=== PATIENT | female | born 1940 | race Caucasian/White ===

== ENCOUNTER → 2016-12-03 | Outpatient (CLI) | payer MEDICARE ==
[~2016-12-03] MED LIST: CANASA RC; CARV12.53 PO; IOHEXOL 350 MG/ML 100 ML (OMNIPAQUE 350) VIAL IV ONE; MERC50TA PO; METO-272 PO; MSL400TEC PO; NS 100 ML (IVPB) BAG IV ONE; OXYC-12 PO; PRAV80TA2 PO; RMP5C; SIMV20TA3 PO; VALS160T28 PO; [UNRECOGNIZED DRUG - REMARK] PO
[2016-12-03 08:32] LABS: BLOOD UREA NITROGEN 13 MG/DL (7-18); BUN/CREATININE RATIO 17; CREATININE SERUM 0.75 MG/DL (0.60-1.30); GFR ESTIMATED > 60
--- NOTE | 2016-12-03 14:20 | Diagnostic Imaging Report ---
EXAMINATION: CT angiogram of the neck performed with intravenous contrast. INDICATION: I65.23. Carotid stenosis. 75 mL of Omnipaque 350 is administered intravenously. Coronal MIP reconstruction is performed. FINDINGS: The aortic arch is patent. The brachiocephalic artery is patent. The right common carotid artery is patent. The right internal and external carotid arteries are patent. At the mid segments of the cervical portion of the right internal carotid artery, there is mild irregularity of the vessel and estimated underlying stenosis of 20-30%. The pattern, lack of prominent plaque, and the location of the abnormality with sparing of the carotid bifurcation is in favor of fibromuscular dysplasia. The left common carotid artery is patent. The carotid bifurcation demonstrates no plaque. The internal and external carotid arteries are patent. The mid segment of the internal carotid artery demonstrates minimal stenosis with irregularity of the lining of the vessel. This may relate to fibromuscular dysplasia. No high-grade stenosis. The vertebral arteries demonstrate normal origin from the patent subclavian arteries and patent course on both sides with codominance suggested. The soft tissues in the neck demonstrate symmetric submandibular and parotid glands. Tiny nonspecific nodule in the left thyroid lobe measuring 6 mm is seen. There is no lymphadenopathy in the cervical chain bilaterally. The lung apices are clear. Degenerative changes in the osseous structures seen. IMPRESSION: There is mild irregularity of the lining of the internal carotid artery affecting mostly the mid segment of the cervical portion of the ICA with no high-grade focal stenosis. The pattern, location, and lack of significant visible plaque are all suggestive of underlying fibromuscular dysplasia (FMD). Dictated on workstation # [id number]
== END ==
LOC: RAD 07:39
PROVIDERS: ATTEND Internal Medicine Cardiovascular Disease
DX: I65.23 Occlusion and stenosis of bilateral carotid arteries (principal)
CPT/HCPCS: 36415; 70498; 82565; 84520

== ENCOUNTER 2017-05-25 13:08 | Emergency (ER) | payer MEDICARE ==
[~2017-05-25] VITALS: Ht 157.5 cm; Wt 60.8 kg
[~2017-05-25 13:08] MED LIST changes: -IOHEXOL 350 MG/ML 100 ML (OMNIPAQUE 350) VIAL IV ONE; -NS 100 ML (IVPB) BAG IV ONE
[2017-05-25 13:47] LABS: BASOPHILS % (AUTO) 0 % (0-10); EOSINOPHILS # (AUTO) 0.1 10^3/uL (0.0-0.3); EOSINOPHILS % (AUTO) 1 % (0-10); HEMATOCRIT 37 % (35-52); LYMPHOCYTES # (AUTO) 0.8 X 10^3 (1.0-4.0); LYMPHOCYTES % (AUTO) 14 % (12-44); MEAN CORPUSCULAR HEMOGLOBIN 35 PG (25-34); MEAN CORPUSCULAR HGB CONC 35 G/DL (32-36); MEAN CORPUSCULAR VOLUME 99 FL (80-99); MEAN PLATELET VOLUME 9.4 FL (7.4-10.4); MONOCYTES # (AUTO) 0.8 X 10^3 (0.0-1.0); MONOCYTES % (AUTO) 15 % (0-12); NEUTROPHILS # (AUTO) 3.9 X 10^3 (1.8-7.8); NEUTROPHILS % (AUTO) 70 % (42-75); PLATELET COUNT 218 10^3/uL (130-400); RED BLOOD COUNT 3.76 10^6/uL (4.35-5.85); RED CELL DISTRIBUTION WIDTH 14.3 % (10.0-14.5); WHITE BLOOD COUNT 5.5 10^3/uL (4.3-11.0)
[2017-05-25 13:59] VITALS: BP_SYST 164; BP_SYST 170; BP_SYST 173; BP_DIAS 73; BP_DIAS 80; BP_DIAS 82
[2017-05-25 15:01] LABS: ALANINE AMINOTRANSFERASE 46 U/L (0-55); ALBUMIN 3.9 GM/DL (3.2-4.5); ALKALINE PHOSPHATASE 64 U/L (40-136); BILIRUBIN,TOTAL 1.5 MG/DL (0.1-1.0); BUN/CREATININE RATIO 20; CARBON DIOXIDE 26 MMOL/L (21-32); CHLORIDE 96 MMOL/L (98-107); CREATININE SERUM 0.65 MG/DL (0.60-1.30); GFR ESTIMATED > 60; GLUCOSE 105 MG/DL (70-105); MAGNESIUM 2.2 MG/DL (1.8-2.4); POTASSIUM 3.5 MMOL/L (3.6-5.0); SODIUM 129 MMOL/L (135-145); TOTAL PROTEIN 6.8 GM/DL (6.4-8.2)
[2017-05-25] MEDS ORDERED: NS IV 1000 ML 1,000 ML IV SCH (15:10)
--- NOTE | 2017-05-25 15:53 | ED Syncope ---
General Chief Complaint: Dizziness/Syncope Stated Complaint: SYNCOPE/FALL Nursing Triage Note: pt was brought to ed via ems. pt had a syncopal episode while at [facility]. Source of Information: Patient, Old Records History of Present Illness Date Seen by Provider: May 25, 2017 Time Seen by Provider: 13:12 Initial Comments This 76-year-old female patient with prior history of syncopal episodes presents to the emergency room via EMS after having 3 episodes of syncope today while visiting at [facility]. EMS notes she has had a heart rate in the 50s and blood pressures have been stable with systolic pressures in the 160s and 170s. Patient has had extensive workup in the past including a 48 hour monitor which showed only PVCs in 2014, cardiac catheter in 2016 showing mild CAD, echocardiogram in 2016 showing diastolic dysfunction as well as mild LVH, aortic valve sclerosis, and mild valvular disease. Ejection fraction was 60 percent. Patient reports definitive cause of her syncopal episodes is uncertain even after extensive workup. Patient takes multiple blood pressure medications that has hypertension that has historically been difficult to manage. She notes she also is an anxious person and takes anxiolytics. She reports a prior history of a cardiac arrest at [place]. Patient states she feels fairly well now except for feeling tired and having a headache. Patient reports she recently was seen in Dr. Alejandre's office and had carotid imaging performed which was reportedly negative. Patient notes she has recently been treated for vertigo. Allergies and Home Medications Allergies Coded Allergies: Atorvastatin (Verified Allergy, Unknown, 11/29/07) Codeine (Verified Allergy, Unknown, 11/29/07) Niacin (Verified Allergy, Unknown, 11/29/07) Sulfa (Sulfonamides) (Verified Allergy, Unknown, 11/29/07) Home Medications Carvedilol 12.5 Mg Tablet, 12.5 MG PO BID, (Reported) Mercaptopurine 50 Mg Tablet, 100 MG PO DAILY, (Reported) Simvastatin 20 Mg Tablet, 20 MG PO HS, (Reported) Valsartan 160 Mg Tablet, 160 MG PO DAILY, (Reported) Patient Home Medication List Home Medication List Reviewed: Yes Constitutional: no symptoms reported EENTM: no symptoms reported Respiratory: no symptoms reported Cardiovascular: see HPI Gastrointestinal: no symptoms reported Genitourinary: no symptoms reported Musculoskeletal: no symptoms reported Skin: no symptoms reported Psychiatric/Neurological: No Symptoms Reported Past [id number]-[id number] Hx Patient Social History Alcohol Use: Denies Use Recreational Drug Use: No Smoking Status: Never a Smoker 2nd Hand Smoke Exposure: No Recent Foreign Travel: No Contact w/Someone Who Travel: No Recent Infectious Disease Expo: No Recent Hopitalizations: No Physical Abuse: No Sexual Abuse: No Immunizations Up To Date Date of Pneumonia Vaccine: Oct 28, 2009 Seasonal Allergies Seasonal Allergies: No Surgeries History of Surgeries: Yes Surgeries: Abdominal (colon resection) Respiratory History of Respiratory Disorde: Yes Respiratory Disorders: Asthma Cardiovascular History of Cardiac Disorders: Yes (MITRAL VALVE PROLAPSE HX OF) Cardiac Disorders: Hypertension, Syncope, Valvular Heart Disease Neurological History of Neurological Disord: Yes Neurological Disorders: Vertigo Reproductive System : No Hx Reproductive Disorders: No Sexually Transmitted Disease: No Genitourinary History of Genitourinary Disor: No Gastrointestinal History of Gastrointestinal Di: Yes (ULCERATIVE COLITIS) Gastrointestinal Disorders: Colitis (ulcerative colitis), Gastroesophageal Reflux Musculoskeletal History of Musculoskeletal Dis: Yes (fingers) Endocrine History of Endocrine Disorders: No HEENT History of HEENT Disorders: No Cancer History of Cancer: No Cancer: Skin Psychosocial History of Psychiatric Problem: Yes Behavioral Health Disorders: Anxiety Suicide Risk Score: 0 Integumentary History of Skin or Integumenta: No Blood Transfusions History of Blood Disorders: Yes Physical Exam Vital Signs Vital Signs - First Documented 05/25/17 05/25/17 13:08 16:36 Temp 98.4 Pulse 63 Resp 18 B/P (MAP) 179/82 (114) Pulse Ox 100 O2 Delivery Room Air Capillary Refill : Less Than 3 Seconds General Appearance: No Apparent Distress, WD/WN HEENT: PERRL/EOMI, Normal ENT Inspection, Pharynx Normal Neck: Normal Inspection Cardiovascular: Regular Rate, Rhythm, No Edema, No Murmur Respiratory: Lungs Clear, Normal Breath Sounds, No Accessory Muscle Use, No Respiratory Distress Gastrointestinal: Normal Bowel Sounds, Non Tender, Soft Extremities: Normal Capillary Refill, Normal Inspection, No Pedal Edema Neurologic/Psychiatric: Alert, Oriented x3, No Motor/Sensory Deficits, Normal Mood/Affect, atmospheric scientist II-XII Norm as Tested Cranial Nerves: Normal Hearing, Normal Speech, PERRL Motor/Sensory: No Motor Deficit, No Sensory Deficit Skin: Normal Color, Warm/Dry Progress/Results/Core Measures Results/Orders Lab Results Laboratory Tests Test 05/25/17 13:40 05/25/17 14:37 Range/Units White Blood Count 5.5 4.3-11.0 10^3/uL Red Blood Count 3.76 L 4.35-5.85 10^6/uL Hemoglobin 13.0 11.5-16.0 G/DL Hematocrit 37 35-52 % Mean Corpuscular Volume 99 80-99 FL Mean Corpuscular Hemoglobin 35 H 25-34 PG Mean Corpuscular Hemoglobin Concent 35 32-36 G/DL Red Cell Distribution Width 14.3 10.0-14.5 % Platelet Count 218 130-400 10^3/uL Mean Platelet Volume 9.4 7.4-10.4 FL Neutrophils (%) (Auto) 70 42-75 % Lymphocytes (%) (Auto) 14 12-44 % Monocytes (%) (Auto) 15 H 0-12 % Eosinophils (%) (Auto) 1 0-10 % Basophils (%) (Auto) 0 0-10 % Neutrophils # (Auto) 3.9 1.8-7.8 X 10^3 Lymphocytes # (Auto) 0.8 L 1.0-4.0 X 10^3 Monocytes # (Auto) 0.8 0.0-1.0 X 10^3 Eosinophils # (Auto) 0.1 0.0-0.3 10^3/uL Basophils # (Auto) 0.0 0.0-0.1 10^3/uL Sodium Level 129 L 135-145 MMOL/L Potassium Level 3.5 L 3.6-5.0 MMOL/L Chloride Level 96 L 98-107 MMOL/L Carbon Dioxide Level 26 21-32 MMOL/L Anion Gap 7 5-14 MMOL/L Blood Urea Nitrogen 13 7-18 MG/DL Creatinine 0.65 0.60-1.30 MG/DL Estimat Glomerular Filtration Rate > 60 BUN/Creatinine Ratio 20 Glucose Level 105 70-105 MG/DL Calcium Level 9.0 8.5-10.1 MG/DL Magnesium Level 2.2 1.8-2.4 MG/DL Total Bilirubin 1.5 H 0.1-1.0 MG/DL Aspartate Amino Transf (AST/SGOT) 26 5-34 U/L Alanine Aminotransferase (ALT/SGPT) 46 0-55 U/L Alkaline Phosphatase 64 40-136 U/L Total Protein 6.8 6.4-8.2 GM/DL Albumin 3.9 3.2-4.5 GM/DL My Orders Orders - BRUCE ROOT MD Cbc With Automated Diff (05/25/17 13:31) Comprehensive Metabolic Panel (05/25/17 13:31) Magnesium (05/25/17 13:31) Saline Lock/Iv-Start (05/25/17 13:31) Ekg Tracing (05/25/17 13:31) Monitor-Rhythm Ecg Trace Only (05/25/17 13:31) Orthostatic Vital Signs (Adult (05/25/17 13:31) Ns Iv 1000 Ml (Sodium Chloride 0.9%) (05/25/17 15:10) Vital Signs/I&O Vital Sign - Last 12Hours 05/25/17 05/25/17 05/25/17 13:08 13:59 16:36 Temp 98.4 98.4 Pulse 63 60 57 60 56 Resp 18 16 B/P (MAP) 179/82 (114) 170/82 (111) 182/76 173/80 (111) 164/73 (103) Pulse Ox 100 100 O2 Delivery Room Air Blood Pressure Mean: 103 Progress Note : Progress Note Patient was mildly hyponatremic and received a liter of IV normal saline. I suspect the combination of beta blockers and diuretics are contributing to her inability to compensate hemodynamic changes. This may be predisposing her to more syncopal episodes. Orthostatic blood pressures did not reveal any significant changes while in the ER. Patient was hypertensive. She was advised to follow-up with her cardiology team as soon as possible. An appointment was made to see Nani and Dr. Alejandre's clinic at 10:40 tomorrow. ECG Initial ECG Impression Date: May 25, 2017 Initial ECG Impression Time: 13:45 Initial ECG Rate: 58 Initial ECG Rhythm: Normal Sinus Initial ECG Intervals: Normal Initial ECG Impression: Normal Comment Normal sinus rhythm with no ST elevation or depression. No abnormal intervals or axis deviation. Departure Impression Impression: Primary Impression: Syncope Qualified Codes: R55 - Syncope and collapse Additional Impressions: Hyponatremia Hypertension Qualified Codes: I10 - Essential (primary) hypertension Disposition: 01 HOME, SELF-CARE Condition: Improved Departure-Patient Inst. Decision time for Depature: 15:40 Referrals: DEANNA WOODWARD MD (PCP/Family) Primary Care Physician Patient Instructions: Hyponatremia, Syncope (Fainting) (DC) Add. Discharge Instructions: Please follow-up with Nani at Dr. Alejandre's office tomorrow at 10:40 to have your blood pressure checked and have a medication review. The combination of your diuretics and carvedilol may be making you more prone to syncopal episodes. Return to the ER if symptoms are worsening. Always rise carefully from a sitting or lying position and take your time. Drink plenty of clear liquids. Continue your current medications until discussion with Nani or Dr. Alejandre. Avoid activities that could cause harm if you have another syncopal episode such as driving, use of ladders, bike riding, operating machinery, etc. until you are cleared in follow-up. All discharge instructions reviewed with patient and/or family. Voiced understanding. Copy Copies To 1: LINDA ALEJANDRE MD Copies To 2: DEANNA WOODWARD MD, JOSHUA T MD May 25, 2017 15:53
[2017-05-25 16:36] VITALS: BP 182/76
== END 2017-05-25 16:36 | disposition home or self-care (01) ==
LOC: EDUNIT# 13:08 → ER 13:09
DX: R55 Syncope and collapse (principal); E87.1 Hypo-osmolality and hyponatremia; I11.9 Hypertensive heart disease without heart failure; I51.9 Heart disease, unspecified; I25.10 Atherosclerotic heart disease of native coronary artery without angina pectoris; F41.9 Anxiety disorder, unspecified; K21.9 Gastro-esophageal reflux disease without esophagitis; J45.909 Unspecified asthma, uncomplicated; Z87.19 Personal history of other diseases of the digestive system; Z90.49 Acquired absence of other specified parts of digestive tract; Z88.1 Allergy status to other antibiotic agents; Z88.2 Allergy status to sulfonamides; Z88.5 Allergy status to narcotic agent
CPT/HCPCS: 36415; 80053; 83735; 85025; 93005; 93041; 96360

== ENCOUNTER → 2017-05-30 | Outpatient (CLI) | payer MEDICARE ==
[~2017-05-30] VITALS: Ht 157.5 cm; Wt 60.8 kg
[2017-05-30] VITALS (24 sets, daily range): BP systolic 63–152; BP diastolic 20–77
[~2017-05-30] MED LIST changes: +ATROPINE INJECTION 1 MG/10 ML SYR (ABBOTT) ONE; +NS IV 1000 ML 1,000 ML IV ONE; +NS IV 1000 ML 1,000 ML ONE
--- NOTE | 2017-05-30 11:26 | Cardiology Tilt Table Test ---
Cardiology-Tilt Table Test Tilt Table Test Date 05/30/17 Baseline Vitals Vital Signs Date Time Temp Pulse Resp B/P (MAP) Pulse Ox O2 Delivery O2 Flow Rate FiO2 05/30/17 09:33 97.6 55 20 150/65 (93) 99 05/30/17 09:44 Room Air Vital Signs VS - Last 72 Hours, by Label 05/30/17 05/30/17 05/30/17 05/30/17 09:33 09:41 09:42 09:44 Temp 97.6 Pulse 55 57 56 54 Resp 20 B/P (MAP) 150/65 (93) 149/65 (93) 150/73 (98) 144/63 (90) Pulse Ox 99 100 98 O2 Delivery Room Air 05/30/17 05/30/17 05/30/17 05/30/17 09:46 09:48 09:50 09:51 Pulse 56 55 54 57 B/P (MAP) 140/51 (80) 133/56 (81) 135/63 (87) 126/63 (84) Pulse Ox 98 100 98 O2 Delivery Room Air 05/30/17 05/30/17 05/30/17 05/30/17 09:53 09:54 09:55 09:57 Pulse 53 55 55 52 B/P (MAP) 147/75 (99) 146/65 (92) 132/71 (91) 128/72 (90) Pulse Ox 97 99 99 98 05/30/17 05/30/17 05/30/17 05/30/17 09:58 10:00 10:01 10:03 Pulse 56 59 57 57 B/P (MAP) 109/59 (76) 102/55 (71) 90/43 (59) 79/44 (56) Pulse Ox 95 05/30/17 05/30/17 05/30/17 05/30/17 10:05 10:06 10:08 10:11 Pulse 47 55 50 50 B/P (MAP) 63/20 (34) 106/65 (79) 142/72 (95) 150/77 (101) Pulse Ox 98 99 05/30/17 05/30/17 05/30/17 05/30/17 10:14 10:20 10:26 10:30 Pulse 55 61 55 51 B/P (MAP) 150/67 (94) 124/72 (89) 152/64 (93) Pulse Ox 98 05/30/17 10:46 Pulse 56 B/P (MAP) 142/59 (86) Patient was tilted to 75 degrees for [10] minutes, then returned to supine position, given [2] sublingual nitroglycerin tablets, then tilted again to 75 degrees for [15] minutes. During test, patient was: had a syncopal event at minute (7, BP 63/20, HR 50, Telemetry revealed sinus bradycardia) In Conclusion;: Vasovagal Syncope with (Vasodepressor Syncope) Patient was instructed to discontinue diuretic. Continue to wear compression stockings. F/u in 2-4 weeks. This is Nani Mullins PA-C, as a scribe for Dr. Alejandre. NANI ROMERO May 30, 2017 11:26
[2017-05-30 11:42] LABS: ALANINE AMINOTRANSFERASE 36 U/L (0-55); ALBUMIN 3.8 GM/DL (3.2-4.5); ALKALINE PHOSPHATASE 64 U/L (40-136); BILIRUBIN,TOTAL 1.5 MG/DL (0.1-1.0); BUN/CREATININE RATIO 15; CALCIUM 8.7 MG/DL (8.5-10.1); CARBON DIOXIDE 27 MMOL/L (21-32); CHLORIDE 99 MMOL/L (98-107); CHOLESTEROL 173 MG/DL (< 200); CREATININE SERUM 0.67 MG/DL (0.60-1.30); GFR ESTIMATED > 60; GLUCOSE 122 MG/DL (70-105); HDL CHOLESTEROL 72 MG/DL (40-60); POTASSIUM 3.6 MMOL/L (3.6-5.0); SODIUM 132 MMOL/L (135-145); TOTAL PROTEIN 6.3 GM/DL (6.4-8.2); TRIGLYCERIDES 53 MG/DL (<150); VLDL CHOLESTEROL 11 MG/DL (5-40)
== END ==
LOC: CARD 08:47
PROVIDERS: ATTEND Physician Assistant
DX: I10 Essential (primary) hypertension (principal); R07.89 Other chest pain; R55 Syncope and collapse; E78.5 Hyperlipidemia, unspecified
CPT/HCPCS: 36415; 80053; 80061; 93660

== ENCOUNTER → 2017-07-01 | Outpatient (CLI) | payer MEDICARE ==
[~2017-07-01] MED LIST changes: -ATROPINE INJECTION 1 MG/10 ML SYR (ABBOTT) ONE; -NS IV 1000 ML 1,000 ML IV ONE; -NS IV 1000 ML 1,000 ML ONE
--- NOTE | 2017-07-01 13:48 | Diagnostic Imaging Report ---
INDICATION: Routine screening. TECHNIQUE: Bilateral 3d digital tomographic views were obtained with [employer] and reviewed on a [employer] workstation. In addition, CAD - computer aided detection was utilized. COMPARISON is made with prior study from 07/04/2014 and 07/03/2013 FINDINGS: There are scattered fibroglandular densities bilaterally. Biopsy clip upper outer right breast is again noted. No discrete mass or malignant appearing microcalcifications are seen. The axillae are unremarkable. IMPRESSION: ACR BI-RADS Category 2: Benign findings. Result letter will be mailed to the patient. Note: At least 10% of breast cancer is not imaged by mammography. Dictated by: Dictated on workstation # [id number]
== END ==
LOC: RAD 09:24
PROVIDERS: ATTEND Family Medicine
DX: Z12.31 Encounter for screening mammogram for malignant neoplasm of breast (principal)
CPT/HCPCS: 77067

== ENCOUNTER → 2017-10-10 | Outpatient (CLI) | payer MEDICARE ==
[~2017-10-10] MED LIST changes: -VALS160T28 PO; +VALS160T29 PO
--- NOTE | 2017-10-10 09:01 | Diagnostic Imaging Report ---
PROCEDURE: US Thyroid. TECHNIQUE: Multiple real-time grayscale images were obtained of the thyroid in various projections. INDICATION: Dysphagia and dysphonia. No prior studies are available for comparison. FINDINGS: The right lobe of the thyroid measures 4.2 x 1.8 x 1.7 cm and the left lobe measures 3.9 x 1.4 x 1.2 cm. Several thyroid nodules are present. There is a partially calcified subcentimeter nodule lower pole left lobe approximately 7 mm x 8 mm in size. There is an ovoid hypoechoic nodule upper pole left lobe measuring 1.2 x 0.5 x 0.6 cm. Subcentimeter nodule mid right lobe measures approximately 6 mm. No dominant thyroid mass is detected. IMPRESSION: Bilateral thyroid nodules, as described. Followup ultrasound in 6 months could be performed to confirm stability. Dictated by: Dictated on workstation # [id number]
== END ==
LOC: RAD 07:49
PROVIDERS: ATTEND Nurse Practitioner Family
DX: E04.2 Nontoxic multinodular goiter (principal); R49.0 Dysphonia
CPT/HCPCS: 76536

== ENCOUNTER → 2017-11-11 | Outpatient (CLI) | payer MEDICARE ==
[2017-11-11 07:38] LABS: BUN/CREATININE RATIO 19; CREATININE SERUM 0.74 MG/DL (0.60-1.30); GFR ESTIMATED > 60
== END ==
LOC: RAD 06:56
PROVIDERS: ATTEND Otolaryngology Otolaryngology/Facial Plastic Surgery
DX: M53.82 Other specified dorsopathies, cervical region (principal); Z53.8 Procedure and treatment not carried out for other reasons
CPT/HCPCS: 36415; 82565; 84520

== ENCOUNTER → 2017-11-24 | Outpatient (CLI) | payer MEDICARE ==
[~2017-11-24] MED LIST changes: +IOHEXOL 350 MG/ML 100 ML (OMNIPAQUE 350) VIAL IV ONE; +NS 250 ML (IVPB) BAG IV ONE
--- NOTE | 2017-11-24 09:00 | Diagnostic Imaging Report ---
PROCEDURE: CT neck soft tissue with contrast. TECHNIQUE: Multiple contiguous axial images were obtained through the neck after the administration of contrast. INDICATION: Fullness in the throat, particularly on the right side. The visualized intracranial structures are unremarkable. The posterior nasopharynx and oropharynx are unremarkable. There is some moderate amount of streak artifact from patient dental hardware. Pharyngeal fat planes are preserved. The epiglottis and larynx are unremarkable. Small nodules in both lobes of the thyroid are seen, correlating with the recent thyroid ultrasound. The submandibular and parotid glands appear to be symmetric bilaterally. Jugulodigastric region as well as posterior cervical regions are unremarkable for pathologically enlarged nodes. Lung apices are unremarkable. IMPRESSION: Unremarkable CT of the soft tissues of the neck. No neck mass or lymphadenopathy is identified. Dictated by: Dictated on workstation # [id number]
== END ==
LOC: RAD 08:02
PROVIDERS: ATTEND Otolaryngology Otolaryngology/Facial Plastic Surgery
DX: R22.1 Localized swelling, mass and lump, neck (principal)
CPT/HCPCS: 70491

== ENCOUNTER → 2020-06-26 | Outpatient (CLI) | payer MEDICARE ==
[~2020-06-26] MED LIST changes: -IOHEXOL 350 MG/ML 100 ML (OMNIPAQUE 350) VIAL IV ONE; -NS 250 ML (IVPB) BAG IV ONE; +SIMV20TA26 PO; -SIMV20TA3 PO
== END ==
LOC: CARD 08:47
PROVIDERS: ATTEND Internal Medicine Cardiovascular Disease
DX: I08.0 Rheumatic disorders of both mitral and aortic valves (principal); I11.9 Hypertensive heart disease without heart failure
CPT/HCPCS: 93306

== ENCOUNTER → 2020-07-07 | Outpatient (CLI) | payer MEDICARE ==
[~2020-07-07] VITALS: Ht 157 cm; Wt 63.0 kg
[~2020-07-07] MED LIST changes: +CATHETER FLUSH 10 ML SYR IV PRN
[2020-07-07 10:56] VITALS: BP 145/82
--- NOTE | 2020-07-07 10:56 | Cardiology Stress Test Report ---
Stress Test Report Date of Procedure/Referring: Date of Procedure: July 07, 2020 PCP Linda Alejandre MD Admitting Physician Radha Adam MD Indications: HTN Baseline Heart Rate: 63 Baseline Blood Pressure: Blood Pressure Systolic: 145 Blood Pressure Diastolic: 82 Baseline EKG: Baseline EKG: NSR Summary: After explaining the procedure and details to the patient, she signed the consent and was brought to the stress nuclear laboratory. Patient exercised on standard Ricky protocol, EKG, heart rate and blood pressure were monitored continuously, resting and stress doses of radio tracer were injected, imaging was acquired and reviewed in the short axis, horizontal long axis and vertical long axis views Patient was able to exercise for a total of 4:42 minutes on Ricky protocol, METs 6 Maximum heart rate 110 Maximum blood pressure 212/76 Stress EKG, Minimal nondiagnostic changes Recovery EKG, Return to baseline TID: 1.07 SSS: 8 SDS: 7 EF: 69 Conclusion: 1. Fair exercise tolerance for a total of 4 minutes and 42 seconds on standard Ricky protocol achieving only 78% of maximal expected heart rate, total of 6 METS 2. Severe hypertensive response to exercise with peak blood pressure 212/76 3. [address] depression in lead II, III and aVF return to baseline during recovery 4. Reversible ischemia involving the whole anterior wall and anterolateral wall with some breast attenuation 5. Normal left ventricular size, EF 69% LINDA ALEJANDRE MD July 07, 2020 10:56
== END ==
LOC: CARD 08:30
PROVIDERS: ATTEND Internal Medicine Cardiovascular Disease
DX: I10 Essential (primary) hypertension (principal)
CPT/HCPCS: 78452; 93017; A9502

== ENCOUNTER 2020-07-11 09:00 | Day surgery (SDC) | payer MEDICARE ==
[2020-07-11] VITALS (10 sets, daily range): BP systolic 138–189; BP diastolic 62–108
[~2020-07-11] VITALS: Ht 157 cm; Wt 64.0 kg
--- NOTE | 2020-07-11 07:41 | Diagnostic Imaging Report ---
EXAMINATION: Chest radiograph, portable AP view. DATE: 07/11/2020 7:25 AM INDICATION: 80-year-old female, chest pain. COMPARISON: October 29, 2015 FINDINGS: Heart size and mediastinal contours are unchanged. There is no identified pneumothorax. There is no large pleural effusion. There is no identified interval focal airspace consolidation. There is widening of the right acromioclavicular joint which is unchanged and likely relates to prior acromioclavicular joint separation injury. IMPRESSION: 1. No identified acute cardiopulmonary abnormality. Dictated by: Dictated on workstation # [id number]
[2020-07-11 07:43] LABS: HEMOGLOBIN 13.1 g/dL (11.5-16.0); MEAN PLATELET VOLUME 9.7 fL (9.0-12.2)
[2020-07-11 08:04] LABS: ALANINE AMINOTRANSFERASE 61 U/L (0-55); ALKALINE PHOSPHATASE 91 U/L (40-136); BILIRUBIN,TOTAL 1.2 MG/DL (0.1-1.0); BUN/CREATININE RATIO 18; CALCIUM 8.9 MG/DL (8.5-10.1); CARBON DIOXIDE 29 MMOL/L (21-32); CHLORIDE 103 MMOL/L (98-107); CHOLESTEROL 142 MG/DL (< 200); CREATININE SERUM 0.72 MG/DL (0.60-1.30); GFR ESTIMATED > 60; GLUCOSE 101 MG/DL (70-105); HDL CHOLESTEROL 47 MG/DL (40-60); POTASSIUM 3.7 MMOL/L (3.6-5.0); SODIUM 141 MMOL/L (135-145); TOTAL PROTEIN 7.1 GM/DL (6.4-8.2); TRIGLYCERIDES 108 MG/DL (<150); VLDL CHOLESTEROL 22 MG/DL (5-40)
--- NOTE | 2020-07-11 08:44 | Conscious Sedation/ASA ---
Conscious Sedation Pre-Proced Time 08:44 ASA Score 3 For ASA 3 and 4: Consider anesthesia and medical clearance. Also, for patients with a history of failed moderate sedation consider anesthesia. Airway Lungs Heart ASA score ASA 1: a normal healthy patient ASA 2: a patient with a mild systemic disease (mid diabetes, controlled hypertension, obesity x ASA 3: a patient with a severe systemic disease that limits activity (angina, COPD, prior Myocardial infarction) ASA 4: a patient with an incapacitating disease that is a constant threat to life (CHF, renal failure) ASA 5: a moribund patient not expected to survive 24 hrs. (ruptured aneurysm) ASA 6: a declared brain- patient whose organs are being harvested. For emergent operations, add the letter E after the classification Mallampati Classification Grade 3 Sedation Plan Analgesia, Amnesia, Plan communicated to team members, Discussed options with patient/fam, Discussed risks with patient/fam The patient is an appropriate candidate to undergo the planned procedure, sedation, and anesthesia. The patient immediately re-assessed prior to indication. LINDA NOGUEIRA MD July 11, 2020 08:44
[~2020-07-11 09:00] MED LIST changes: +ASCO500T7 PO; +ATOR10TA66 PO; -CATHETER FLUSH 10 ML SYR IV PRN; +CHOL-34 PO; +CYAN500T44 PO; +HEParin (CATH LAB) 2,000 ML IV ONE; +HEParin 1000 UNIT/ML (10ML VIAL) FOR BOLUS ONE; +LACT1CAP62 PO; +LIDOCAINE 1% INJ 20 ML 20 ML VIAL ONE; +MIDAZOLAM 5 MG/5 ML (VERSED) VIAL ONE; +NITRO DRIP 25000 MCG/D5W 250 ML IV ONE; +NS IV 1000 ML 1,000 ML IV SCH; +NS IV 1000 ML 1,000 ML ONE; +OMEP20TA7 PO; +VERAPAMIL 5 MG/2 ML (CALAN) VIAL IV ONE; +fentaNYL INJ 100 MCG/2 ML AMP ONE
--- NOTE | 2020-07-11 09:07 | Discharge Inst-Post CATH ---
Discharge Inst-CATH/EP Problems Reviewed?: Yes Post Cardiac Cath/EP D/C Inst Follow Up/Plan Appointment with Dr. Alejandre in 2 to 4 weeks <b>CARDIAC CATH/EP PROCEDURE DISCHARGE INSTRUCTIONS</b> ACTIVITY * Go Home directly and rest. * Limit activity of the leg (or wrist if it was used) for 7 days including aerobics, swimming, jogging, bicycling, etc. * Restrict stair-climbing for 7 days if possible, if not, climb up with your non-cath leg, then bring together on the same step. * Avoid lifting, pushing, pulling or excessive movement of the affected extremity for 7 days. * Customary sexual activity may be resumed after 2 days-use caution not to use a position that strains or causes pain to the affected extremity. * No driving for 24 hours. * NO SMOKING. * Avoid straining for bowel movements for 7 days. * Gentle walking on level ground is allowed. * Returning to work will depend on the type of procedure and the results. Your doctor will discuss this with you. CALL YOUR DOCTOR FOR ANY OF THE FOLLOWING: *If bleeding from the puncture site occurs- Apply gentle pressure to site with clean cloth and call your doctor or EMS. * If a knot or lump forms under the skin, increases in size, or causes pain. * If bruising appears to be worsening or moving further down your leg instead of disappearing. * Temperature above 101 F. CARE OF YOUR GROIN INCISION; * Bruising or purple discoloration of the skin near the puncture site is common. * You may shower only, no bathtub bathing for 5 days. Be careful to avoid slipping as your leg may feel stiff. * If a closure device was used on your femoral artery, please see the attached guide regarding care of the device and your leg. * Leave dressing on FOR 24 hours. CARE OF YOUR WRIST INCISION; * Bruising or purple discoloration of the skin near the puncture site is common. * You may shower. * DO NOT submerge wrist. * Leave dressing on FOR 24 hours. LINDA ALEJANDRE MD July 11, 2020 9:07 am
--- NOTE | 2020-07-11 09:11 | Cardiac Cath Report ---
Cardiac Cath Report Physician (s)/Vehicle Modification Technician (s) Physician LINDA NOGUEIRA MD Pre-Procedure Diagnosis Pre-Procedure Diagnosis: Chest pain, coronary artery disease Post-Procedure Note Procedure Start Date: July 11, 2020 Name of Procedure: Coronary angiogram Aortic arch angiogram Findings/Procedure Note PROCEDURE NOTE: 80 years old lady with history of hypertension, hyperlipidemia, mild coronary artery disease, has been having recurrent chest pain, had an abnormal stress test, scheduled for cardiac catheterization possible PTCA. After explaining the procedure to the patient, all pros and cons were explained, all questions were answered. The patient signed the consent and then she was placed on the cardiac catheterization laboratory. Groin was prepped SL fashion local anesthesia was used. Sheath placed in the right radial artery, Orland catheter was used, I had difficulty advancing the wire, used baby wire to advance to the coronary system, intubated the right and left coronary system and angiogram was done then I pulled the catheter back to the aortic arch and aortic arch angiogram was done. At the end of the procedure the sheath was removed. Vascular band was used FINDINGS: Hemodynamics Aorta 141/53 mean of 88 ANATOMY: Left Main is free of obstructive disease Left Anterior Descending is tapering down into a small artery distally, no significant obstructive disease Left Circumflex has mild disease nonobstructive disease Right Coronory Artery is dominant artery with no obstructive disease Aorta evaluation done with aortic arch angiogram showing normal aortic arch, no dissection or aneurysm, slight tortuosity in the right subclavian artery, no obstructive disease in the right brachiocephalic artery, left carotid and left subclavian arteries CONCLUSION: 1. LAD is tapered down into a small artery distally, mild small vessel disease nonobstructive disease 2. Normal aortic arch and great vessels of the neck DISCUSSION AND RECOMMENDATION: Abnormal stress test is probably due to extracardiac attenuation, medical therapy is recommended Anesthesia Type: Conscious Sedation Estimated blood loss (mL): 10 ml Contrast Amount: 35 ml Total Radiation Dose: 202 mGy Post-Procedure Diagnosis Post-operative diagnosis: Chest pain Coronary artery disease Hypertension Hyperlipidemia LINDA NOGUEIRA MD July 11, 2020 9:11 am
[2020-07-11] MEDS ORDERED: NS IV 1000 ML 1,000 ML IV SCH (09:15)
== END 2020-07-11 12:30 | disposition home or self-care (01) ==
LOC: SDC 09:18 → CATH 12:30
PROVIDERS: ATTEND Internal Medicine Cardiovascular Disease
DX: I25.10 Atherosclerotic heart disease of native coronary artery without angina pectoris (principal); I10 Essential (primary) hypertension; E78.2 Mixed hyperlipidemia; I65.29 Occlusion and stenosis of unspecified carotid artery; Z79.899 Other long term (current) drug therapy
CPT/HCPCS: 36221; 36430; 71045; 80053; 80061; 85027; 85610; 85730; 87081; 93454; C1769; 36415

== ENCOUNTER → 2021-12-18 | Outpatient (CLI) | payer MEDICARE ==
[~2021-12-18] MED LIST changes: -HEParin (CATH LAB) 2,000 ML IV ONE; -HEParin 1000 UNIT/ML (10ML VIAL) FOR BOLUS ONE; -LIDOCAINE 1% INJ 20 ML 20 ML VIAL ONE; -MIDAZOLAM 5 MG/5 ML (VERSED) VIAL ONE; -NITRO DRIP 25000 MCG/D5W 250 ML IV ONE; -NS IV 1000 ML 1,000 ML IV SCH; -NS IV 1000 ML 1,000 ML ONE; +OMEP20TA56 PO; -OMEP20TA7 PO; -VERAPAMIL 5 MG/2 ML (CALAN) VIAL IV ONE; -fentaNYL INJ 100 MCG/2 ML AMP ONE
--- NOTE | 2021-12-18 13:09 | Diagnostic Imaging Report ---
INDICATION: Right breast pain. CORRELATION is made with diagnostic mammogram earlier same day. Sonographic interrogation of the area of pain outer right breast was performed. No sonographic abnormality is identified. No solid or cystic mass is detected. IMPRESSION: BI-RADS Category 1 No sonographic abnormality is identified. The patient may return to routine annual screening mammography. ACR BI-RADS Category 1: Negative. Result letter will be mailed to the patient. Note: At least 10% of breast cancer is not imaged by mammography. Dictated by: Dictated on workstation # [id number]
--- NOTE | 2021-12-18 17:02 | Diagnostic Imaging Report ---
Indication: Pain in the lateral right breast area Correlation is made with prior exam 07/01/2017 and 07/04/2014. 2-D and 3-D bilateral diagnostic mammography was performed with CAD. Both breasts are heterogeneously dense, limiting the sensitivity of mammography. No dominant mass or malignant-appearing microcalcifications are seen. There is a biopsy clip in the upper right breast. Axillae are unremarkable. IMPRESSION: BI-RADS Category 0. No mammographic features suspicious for malignancy are identified. Even so, sonographic interrogation of the area of pain in the upper outer right breast is recommended and will be performed today. ACR BI-RADS Category 0: Incomplete. (Needs additional imaging evaluation). Result letter will be mailed to the patient. Note: At least 10% of breast cancer is not imaged by mammography. Dictated by: Dictated on workstation # [id number]
== END ==
LOC: RAD 12:45
PROVIDERS: ATTEND Nurse Practitioner Family
DX: N64.4 Mastodynia (principal); Z80.3 Family history of malignant neoplasm of breast
CPT/HCPCS: 76642; 77066; G0279; 77062

== ENCOUNTER → 2022-04-27 | Outpatient (CLI) | payer MEDICARE ==
--- NOTE | 2022-04-27 16:59 | Diagnostic Imaging Report ---
INDICATION: Chronic cough COMPARISON: 07/11/2020 TECHNIQUE: 2 radiographs of the chest dated 04/27/2022 FINDINGS: The cardiac silhouette is within normal limits in size. No significant pulmonary vascular congestion. Background senescent changes of the lungs without focal pulmonary opacity. No pleural effusion. No pneumothorax. Scattered osseous degenerative changes without acute osseous abnormality. Background vascular calcifications. IMPRESSION: Senescent changes of the lungs without acute cardiopulmonary abnormality. Dictated by: Dictated on workstation # [id number]
== END ==
LOC: RAD 11:20
PROVIDERS: ATTEND Nurse Practitioner Family
DX: R05.3 Chronic cough (principal)
CPT/HCPCS: 71046

== ENCOUNTER → 2022-09-03 | Outpatient (CLI) | payer MEDICARE ==
--- NOTE | 2022-09-03 13:22 | Diagnostic Imaging Report ---
INDICATION: Dysphagia. Procedure was performed in conjunction with speech pathology. Video fluoroscopy was performed during the swallowing of barium at multiple consistencies. 54 seconds of fluoroscopic time was utilized. No spot films were obtained. Patient ingested thin barium as well as applesauce and cracker consistency. There was flash penetration during the swallowing of thin barium but no aspiration was observed. No significant residue is noted. IMPRESSION: Flash penetration during swallowing of thin barium. Study is otherwise unremarkable. Dictated by: Dictated on workstation # [id number]
== END ==
LOC: RAD 10:43
PROVIDERS: ATTEND Otolaryngology Otolaryngology/Facial Plastic Surgery
DX: R13.10 Dysphagia, unspecified (principal); R49.0 Dysphonia; R09.89 Other specified symptoms and signs involving the circulatory and respiratory systems
CPT/HCPCS: 74230